=== PATIENT | female | born 1935 | race Caucasian/White ===

== ENCOUNTER 2016-07-30 16:03 | Inpatient (IN) | payer OTHER ==
[~2016-07-30] VITALS: Ht 167.6 cm; Wt 72.3 kg
--- NOTE | ~2016-07-30 | HC ---
[facility] [place] [address] CONSULTATION Name: BRIGHT CARTER Room #: 236-P [facility] IN M.R.#: [id number] Admission: 07/30/16 Attend Phys: Kierra Kahn MD Discharge: 08/01/16 Date of : 34 Report #: [id number] THIS REPORT FOR: //name// CC: Jose Kahn REASON FOR CONSULTATION: Acute kidney injury and metabolic acidosis. REASON FOR PRESENTATION: Fever and shakes. HISTORY OF PRESENT ILLNESS: The history was obtained from the chart and from the previous medical records as the patient is currently intubated and not able to provide us with history. She is an 80-year-old who has a history of lung cancer, recently treated by radiotherapy. Unfortunately, she has new lesions that were diagnosed and those were consistent with recurrence of her [place] disease. She had felt ill and weak for a couple of days before her presentation. She has visited with [facility] and was found to have a fever of 105 and was sent to our facility for further evaluation. Her white blood cell count along with other blood parameters on presentation showed pancytopenia. 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 She is not known to have any previous chronic kidney problems and her most recent creatinine was actually in the normal range before this whole thing started with her. While in the ICU, the patient's condition deteriorated and I had to intubate her emergently. I was asked to see her because of her acute kidney injury or metabolic acidosis. PAST MEDICAL HISTORY: 1. Lung cancer. 2. Multiple endocrine neoplasia. 3. Melanoma. 4. Sjogren's syndrome. 5. COPD. 6. Anemia. PAST SURGICAL HISTORY: 1. Parathyroidectomy. 2. Melanoma excision. 3. Lithotripsy. 4. Hip replacement. 5. Thyroid removal. SOCIAL HISTORY: No drug or alcohol abuse, exsmoker. ALLERGIES: PENICILLIN, SULFA, KEFLEX, ASPIRIN. [facility] [address] [place] [address] CONSULTATION Name: BRIGHT CARTER Room #: 236-P [facility] IN [facility].#: [id number] Admission: 07/30/16 Attend Phys: Kierra Kahn MD Discharge: 08/01/16 Date of : 34 Report #: [id number] FAMILY HISTORY: She had a stroke. ADDITIONAL HISTORY: Pericardial stripping due to the involvement of the pericardial with the above-mentioned carcinoma. REVIEW OF SYSTEMS: Unfortunately, the patient is currently intubated and not able to provide us with review of systems. MEDICATIONS: 1. Digoxin. 2. Atorvastatin. 3. Aldactone. 4. Diazepam. 5. Lasix. 6. Levothyroxine. PHYSICAL EXAMINATION: GENERAL: She is currently intubated on multiple pressors. VITAL SIGNS: Blood pressure is 89/56. HEAD AND NECK: ET-tube with mottled skin. CHEST: Decreased air entry bilaterally. CARDIOVASCULAR: Tachycardic with no rub detected. ABDOMEN: Soft, unable to evaluate for tenderness as the patient is currently intubated. LOWER EXTREMITIES: Mottled skin. LABORATORY VALUES: Most recent chemistry from earlier this morning showed a potassium of 5.3 and an anion gap of 21 and a creatinine of 2.3. Her blood gas showed a pH of 7.09, pCO2 of 23, bicarbonate of 7.1. Cultures are all pending. IMAGING: Including a chest x-ray were reviewed. ASSESSMENT, IMPRESSION AND PLAN: 1. Respiratory failure. 2. Lactic acidosis. 3. Acute kidney injury. 4. Overwhelming sepsis. 5. Hypothyroidism. 6. Remote history of lung cancer with pericardial extension post-pericardial stripping. 7. Multiple endocrine neoplasia. 8. Status post parathyroidectomy. 9. Status post thyroidectomy. 10. The patient's acute kidney injury is explained by an overwhelming sepsis. Agree with the current ICU care including IV fluids, pressors, antibiotics. [address] [address] CONSULTATION Name: BRIGHT CARTER Room #: 236-P [facility] IN M.R.#: [id number] Admission: 07/30/16 Attend Phys: Kierra Kahn MD Discharge: 08/01/16 Date of : 34 Report #: [id number] Given her remote history of nephrolithiasis on stones, we will obtain an ultrasound of the kidneys. 11. Cultures are pending. 12. Discussed with the family at length, she is actually a DNR and there is a living will that will be brought by her daughter. Her daughter used to be a dialysis nurse. I discussed the metabolic acidosis status with her and as for now, she wants to hold on dialysis and she is agreeable to proceeding with bicarbonate drip. 13. Investigate the source of overwhelming sepsis, might need imaging of her chest to rule out pulmonary embolism, might need imaging of her abdomen to rule out ischemic colitis. She is known to have hypercoagulable conditions with remote history of pulmonary embolism and I will defer the management of that to the primary team. 14. I would discontinue any medications that might compromise her renal or electrolyte issues including the Lasix and the Aldactone. 15. This is a very critical situation and this was addressed with the family and they are willing to wait for 24 hours before making any further decisions and think the hemodialysis will help her and we should address her [facility] care plans with the family given her comorbid conditions. 16. ICU time spent in evaluating this patient was the full 60 minutes including coordinating her with other physicians, specifically Dr. Fuller and Dr. Boss, including family spent with time discussing the patient's condition, phone calls and discussing the care plans with the ICU nurse. Time started evaluating the patient was 09:24 a.m. and time finishing evaluating the patient was 10:24 a.m. <ELECTRONICALLY SIGNED> By: Kate Olmstead MD 08/03/16 [id number] Kate Olmstead MD /nt
--- NOTE | ~2016-07-30 | EKG ---
[place] [address] [facility] [place] [address] ELECTROCARDIOGRAM REPORT Name: BRIGHT CARTER Room #: 236-P ADM IN M.R.#: [id number] Admission: 07/30/16 Attend Phys: Kierra Kahn MD Discharge: Date of : 34 Report #: [id number] THIS REPORT FOR: //name// [facility] Test Date: 2016-08-01 Test Time: 06:59:41 Pat Name: BRIGHT CARTER Department: Room: 236 Gender: F Histology Aide: Issac BOND : 1935 Requested By: Shaye Sharma Order Number: [id number] MD: Ced Ervin Measurements Intervals [place] Rate: 138 P: [place]: QRS: 0 QRSD: 98 T: 34 QT: 271 QTc: 411 Interpretive Statements Atrial fibrillation with rapid V-rate Borderline low voltage, extremity leads ST and T wave abnormalities Poor R wave progression No previous ECG available for comparison Electronically Signed On 08-01-2016 8:12:21 OFFSET LABEL REWINDER by Ced Ervin [email or web address] <ELECTRONICALLY SIGNED> By: Ced Ervin MD, [facility] [id number] [phone] Ced Ervin MD, [facility] /EPI
--- NOTE | ~2016-07-30 | HC ---
[facility] [place] [address] CONSULTATION Name: BRIGHT CARTER Room #: 236-P [facility] IN M.R.#: [id number] Admission: 07/30/16 Attend Phys: Kierra Kahn MD Discharge: 08/01/16 Date of : 34 Report #: [id number] THIS REPORT FOR: //name// CC: Jose Kahn PRIMARY CARE PHYSICIAN: Jose Santos MD. REFERRAL PHYSICIAN: Kierra Kahn MD. REASON FOR REFERRAL: Acute cardiopulmonary arrest. HISTORY OF PRESENT ILLNESS: The patient is an 80-year-old white female who was initially admitted on 07/30/2016 with febrile illness and chills. The patient was admitted with sepsis of unknown source. She was pancytopenic, hypotensive. Early this morning, the patient was found to be hypotensive, hypoxic. A code blue was called. She was intubated. She is currently in the ICU. She is hypotensive requiring vasopressors. A pulmonary critical care consultation was requested. At this time, she is sedated. She is tolerating mechanical ventilation. PAST MEDICAL HISTORY: Remarkable for lung cancer initially diagnosed in 2014. She underwent left upper lobe lobectomy along with radiation therapy and chemo in 02/2016. A PET scan performed recently showed recurrence of lung cancer. There are plans for additional therapy at [facility]. She is followed by Dr. Stoney Arauz. She was in her usual state of health until a few days prior to presentation, the patient began to feel very weak, chills and fever. Temperature was said to be 105 degrees Fahrenheit. She presented to [facility], then was subsequently transferred to [facility]. Chest x-ray on admission shows cardiomegaly, in particular right atrial and probable right ventricular hypertrophy with mild increase in vascular markings. No obvious infiltrates are seen. ET tube is approximately 2 cm above the delphine. PAST MEDICAL HISTORY: As mentioned above, apparent recurrent lung cancer, squamous, initially diagnosed as stage IIIa to IIb. Underwent left upper lobe lobectomy 06/2015. Now with recurrence as mentioned above. She also has a history of multiple endocrine neoplasm, followed by Dr. Stoney De La Garza, history of parathyroidoma, gastrinoma undergoing thyroidectomy. She has a history of pulmonary embolus undergoing IVC filter placement, permanent atrial [facility] [address] [place] [address] CONSULTATION Name: BRIGHT CARTER Room #: 236-P [facility] IN M.R.#: [id number] Admission: 07/30/16 Attend Phys: Kierra Kahn MD Discharge: 08/01/16 Date of : 34 Report #: [id number] fibrillation, history of melanoma involving the left arm, COPD along with a history of questionable Sjogren syndrome. PAST SURGICAL HISTORY: As mentioned above. ALLERGIES: Multiple including PENICILLINS, SULFA, which causes dyspnea; ASPIRIN causes increased bleeding risks; CEPHALOSPORIN causes severe rash. HOME MEDICATIONS: Reviewed including Spiriva, Xopenex, Lipitor, spironolactone, Valium, Ambien, Lasix, cyclosporine, Colace, Nexium, levothyroxine, multivitamins. CURRENT MEDICATIONS: Reviewed. These include aztreonam, Solu-Medrol, vancomycin, fluconazole. FAMILY HISTORY: Notable for thyroid disease, skin neoplasm, rheumatoid arthritis, heart disease. SOCIAL HISTORY: She is , lives in [facility]. She has smoked, but quit smoking more than 30 years ago. There is no history of alcohol use. She used to work in the [employer]. REVIEW OF SYSTEMS: Deferred as the patient is intubated. PHYSICAL EXAMINATION: GENERAL: She is sedated. VITAL SIGNS: Temperature maximum is 101.3 degrees Fahrenheit, currently, it is 98 degrees Fahrenheit; pulse is 140 beats per minute; blood pressure 100/61 mmHg; saturation is 92%. HEENT: Normocephalic, atraumatic. The patient is orally intubated. NECK: Supple, without lymphadenopathy or thyromegaly. CHEST: Breath sounds are clear anteriorly but no rales or wheezes. CARDIOVASCULAR: Normal S1, S2. There are no murmurs or gallop. There is no JVD. There is no carotid bruit. EXTREMITIES: Pulses are decreased 1/4+ bilaterally. GENITOURINARY AND RECTAL: Deferred. EXTREMITIES: Cold to touch, mild cyanosis. No clubbing or edema. LABORATORY: Portable chest x-ray again shows cardiomegaly suggestive of right-sided enlargement including the right atrium and right ventricle. Lung was otherwise clear with mild increase in vascular congestion, ET tube is approximately 2 cm above the delphine. Sodium 136, potassium 5.3, chloride 102, CO2 is 13, BUN is 70, creatinine is 2.3, on admission is 1.3. Liver function test is mildly abnormal. Arterial blood gas post-code revealed pH 7.09, pCO2 23, pO2 489 on FiO2 100%. Albumin 3.0. Influenza A and B screen was negative. Lactic acid was 3.1. WBC is 10,900 with significant bandemia at 33%, hemoglobin [address] [address] CONSULTATION Name: BRIGHT CARTER Room #: 236-P [facility] IN [place]#: [id number] Admission: 07/30/16 Attend Phys: Kierra Kahn MD Discharge: 08/01/16 Date of : 34 Report #: [id number] 12.4. IMPRESSION: 1. Acute hypoxic respiratory failure in this 80-year-old white female. She is now hypotensive with acute renal failure, severe metabolic acidosis, profound bandemia and febrile illness. She has a history of recurrent lung cancer, history of pulmonary embolus, undergoing IVC filter placement. Chest x-ray shows cardiomegaly with right-sided cardiomegaly suggestive for right ventricular hypertrophy. Most likely cause of the patient's pulmonary arrest is likely related to severe sepsis, leading to septic shock. She is felt to have underlying chronic obstructive pulmonary disease which is likely contributing. Pulmonary embolus is felt to be less likely given the patient has an IVC filter. 2. History of tobacco use, chronic obstructive pulmonary disease, we will treat for presumed exacerbation. 3. Severe sepsis, septic shock, source unclear. Need to consider infectious processes in this patient who is immunocompromised. Infectious Disease has been consulted. Atypical infections and opportunistic infection should also be considered. Chest x-ray does not show obvious infiltrates. Other considerations include occult bacteremia, GI tract, urinary tract. 4. Acute hypoxic respiratory failure with profound metabolic acidosis with respiratory compensation. This is consistent with severe sepsis. 5. History of pulmonary embolus, status post IVC filter placement. Note that the chest x-ray suggests right ventricular hypertrophy. Echocardiogram has been ordered. Suspect the patient likely has severe pulmonary hypertension. Anticoagulation will be helpful, but may be relatively contraindicated in this patient's recurrence of lung cancer. 6. Acute kidney injury due to hypotension leading to acute tubular necrosis, profound metabolic acidosis with an anion gap. 7. History of lung cancer, diagnosed in 2015, now with recurrence. The patient is status post radiation and chemo along with left upper lobe lobectomy. She is scheduled to go further treatment at [facility]. She is followed by Dr. Arauz. 8. Permanent atrial fibrillation. 9. Multiple endocrine neoplasm syndrome type 1 with history of melanoma, parathyroidoma, gastrinoma. 10. Sjogren syndrome. 11. Hypertension, hyperparathyroidism, glaucoma, gastroesophageal reflux disease. RECOMMENDATION: We will continue mechanical ventilation, make adjustment to the mechanical ventilator, bicarbonate has been given, follow up arterial blood gas. We will wean once medically stable. The patient should be covered for presumed severe sepsis and we will defer [facility] [address] [place] [address] CONSULTATION Name: BRIGHT CARTER Room #: 236-P [facility] IN M.R.#: [id number] Admission: 07/30/16 Attend Phys: Kierra Kahn MD Discharge: 08/01/16 Date of : 34 Report #: [id number] antibiotics to Infectious Disease. Anticoagulation will be very beneficial in this patient; however, it appears that risk for bleeding is mild to moderate. We will reassess and discuss with other consultants. The patient does have risk factors for developing recurrent venous thromboembolic disease. Bronchodilators and corticosteroids will be continued. Wean O2 for saturation 90%. Thank you for this consultation. <ELECTRONICALLY SIGNED> By: Ashok Ward MD 08/02/16 1611 1055 1231 Ashok Ward MD /nt
--- NOTE | ~2016-07-30 | EKG ---
[address] [address] ELECTROCARDIOGRAM REPORT Name: BRIGHT CARTER Room #: 236-P ADM IN M.R.#: [id number] Admission: 07/30/16 Attend Phys: Kierra Kahn MD Discharge: Date of : 34 Report #: [id number] THIS REPORT FOR: //name// [facility] Test Date: 2016-08-01 Test Time: 07:43:02 Pat Name: BRIGHT CARTER Department: Room: 236 P Gender: F Telegraphic Typewriter Repairer: Issac BOND : 1935 Requested By: Kierra Kahn Order Number: [id number] MD: Ced Ervin Measurements Intervals [place] Rate: 132 P: [place]: QRS: 90 QRSD: 106 T: 117 QT: 287 QTc: 425 Interpretive Statements Atrial fibrillation Low voltage, extremity leads Nonspecific ST and T wave abnormality No previous ECG available for comparison Electronically Signed On 08-01-2016 8:12:47 FIRER ELECTRIC LOCOMOTIVE by Ced Ervin [email or web address] <ELECTRONICALLY SIGNED> By: Ced Ervin MD, [facility] 08/01/16 0812 2 Ced Ervin MD, [facility] /EPI
--- NOTE | ~2016-07-30 | H ---
[facility] [place] [address] HISTORY AND PHYSICAL Name: BRIGHT CARTER Room #: 236-P [facility] IN M.R.#: [id number] Admission: 07/30/16 Attend Phys: Kierra Kahn MD Discharge: 08/01/16 Date of : 34 Report #: [id number] THIS REPORT FOR: //name// CC: Jose Kahn DICTATED BY: Shania OH ATTENDING PHYSICIAN: Jacquie Sloan MD PRIMARY CARE PHYSICIAN: Jose Santos MD CHIEF COMPLAINT: Fevers and shakes. HISTORY OF PRESENT ILLNESS: The patient is an 80-year-old female who has a history of lung cancer within the last year. This was initially treated with left upper lobe lobectomy and thoracotomy, which was followed by radiation. She finished radiation treatments in February of 2016, and recently had a PET scan done, which showed a small spot that was biopsied recurrence of her lung cancer and she is planning to have some sort of ablation therapy done on this lesion this week. She has not been on any chemo this entire time. She follows with Dr. Arauz at [facility]. She reports that for the last 2 days, she has been feeling very weak all over and today felt hot and shaky. She did not check her temp at home, but when she arrived at [facility], she had a fever up to 105. She denies any pain anywhere. She denies any cough, or congestion. She denies any nausea, vomiting or diarrhea. She has a slight headache when she has the high fever, but otherwise has no neck pain. She has no urinary complaints. She was noted to have some abnormal labs at [facility] including pancytopenia. She was treated with vancomycin and aztreonam, as well as IV fluids and antiemetics at [facility]. PAST MEDICAL HISTORY: Hypertension, hyperparathyroidism, glaucoma, GERD, lung cancer, previous acute kidney injury, PE, atrial fibrillation, COPD, hypothyroidism, nephrolithiasis, COPD, multiple endocrine neoplasia syndrome, type 1, melanoma, Sjogren's syndrome, hyperlipidemia, and multiple GI bleeds. PAST SURGICAL HISTORY: Total thyroidectomy, parathyroidectomy, left upper lobe lobectomy, lithotripsy, IVC filter, left total hip replacement, , hysterectomy, melanoma excisions. ALLERGIES: PENICILLIN AND SULFA, BOTH CAUSE TROUBLE BREATHING AND ASPIRIN INCREASED HER BLEEDING RISK DUE TO HER HISTORY OF MULTIPLE ENDOCRINE NEOPLASIA. KEFLEX CAUSES A SEVERE RASH. HOME MEDICATIONS: Tiotropium 2 puffs daily, Xopenex 1.25 mg q. 4 hours p.r.n., digoxin 125 mcg daily, Lipitor 10 mg at bedtime, spironolactone 25 mg b.i.d., diazepam 5 mg as directed, Ambien 0.5 mg at bedtime, Lasix 10 mg p.o. at [address] [address] HISTORY AND PHYSICAL Name: BRIGHT CARTER Room #: 236-P [facility] IN M.R.#: [id number] Admission: 07/30/16 Attend Phys: Kierra Kahn MD Discharge: 08/01/16 Date of : 34 Report #: [id number] bedtime, guaifenesin with codeine 10 mL as directed, cyclosporine eyedrops to each eye b.i.d., lactobacillus 1 tablet daily, Colace 100 mg daily, Nexium 40 mg daily, levothyroxine 112 mcg daily, multivitamin daily. SOCIAL HISTORY: The patient is an ex-smoker, having quit 30 years ago. She does drink occasional alcohol, denies any daily use. FAMILY HISTORY: Seems Positive for thyroid disease, skin cancer, rheumatoid arthritis, and heart disease. REVIEW OF SYSTEMS: The patient has had a previous echocardiogram done in June 2015, which showed a normal EF of 55-60%. She was previously admitted here at [facility] last year and has since been at . All other 12-point review of systems was reviewed with the patient, otherwise negative unless stated in the HPI. PHYSICAL EXAMINATION: GENERAL: The patient is an alert female, in no acute distress. VITAL SIGNS: Temperature max is 38.5, heart rate 93, respirations 20, blood pressure is 93/60, oxygen is 97% on room air. HEENT: PERRLA. Sclerae are nonicteric. Oral mucosa is pink and dry. Lips are cracked. NECK: Supple. No JVD noted. CARDIAC: Heart tones are irregular. No murmurs, rubs or gallops. RESPIRATORY: Breath sounds are clear bilaterally. No wheezing or rhonchi. Breathing is nonlabored. ABDOMEN: Soft, nontender, nondistended with positive bowel sounds. VASCULAR: No edema noted. Pedal pulses are 2+. NEUROLOGIC: The patient is alert. She is oriented x 3. Speech is clear. She does have some slight generalized weakness, although she is able to move all extremities equally. LABS AND DIAGNOSTIC DATA: WBC is 2.6, hemoglobin 11.7, platelets 47. Sodium 129, potassium 4.9, BUN 37, creatinine is 1.4, bilirubin is 2.3, AST 48. BNP is 19,700. Influenza A and B are negative. Lactate initially was 1.8, it is now 2.1. UA is negative leukocyte esterase, 3-4 WBCs, 1+ bacteria. Chest x-ray shows cardiomegaly with mild left hemidiaphragm elevation, no consolidation. ASSESSMENT AND PLAN: 1. Systemic inflammatory response syndrome. At this point, source of infection has not been found. We will continue with broad-spectrum antibiotics consisting of vancomycin and aztreonam. As she does have multiple antibiotic allergies, we will be following blood culture results. Tylenol for supportive care. 2. Pancytopenia. Etiology is not clear. She did have recent cancer diagnosed and radiation, but she has not received any chemotherapy. We will follow labs and trends. There is no sign of bleeding. [facility] [address] [place] [address] HISTORY AND PHYSICAL Name: BRIGHT CARTER Room #: 236-P [facility] IN M.R.#: [id number] Admission: 07/30/16 Attend Phys: Kierra Kahn MD Discharge: 08/01/16 Date of : 34 Report #: [id number] 3. Hypotension. We will hold digoxin, spironolactone and Lasix from home. There was mention in previous records of adrenal deficiency, but from what I can see she is not on any chronic steroids. We will try a dose of stress-dosed steroids and see if it helps her blood pressure. 4. Elevated BNP and possible congestive heart failure. We will order an echo in the morning. The patient is not sure when this was last done. We will hold off on any further aggressive fluids. 5. Atrial fibrillation. This is chronic. She is currently rate controlled. Continue home medications. 6. Deep venous thrombosis prophylaxis. Place sequential compression devices. We will continue to follow the patient closely throughout the hospitalization and make changes based on clinical status. <ELECTRONICALLY SIGNED> By: Jacquie Sloan MD 08/23/162009 0610 0751 Jacquie Sloan MD /nt
--- NOTE | ~2016-07-30 | HC ---
[facility] [place] [address] CONSULTATION Name: BRIGHT CARTER Room #: 236-P [facility] IN M.R.#: [id number] Admission: 07/30/16 Attend Phys: Kierra Kahn MD Discharge: 08/01/16 Date of : 33 Report #: [id number] THIS REPORT FOR: //name// CC: Jose Kahn REASON FOR CONSULTATION: I was asked to evaluate concerning possible septic shock. HISTORY OF PRESENT ILLNESS: The patient is an 80-year-old with history of left lung cancer, status post left upper lobectomy and radiation therapy. She has completed her radiation in December. Subsequent PET scan did show evidence of metastatic disease and is supposed to undergo chemotherapy. No current chemotherapy has been undertaken. She was admitted on July 30 with a 2-day history of malaise, fever, generalized weakness. She presented to the emergency room at [facility] in [place], [place]. She had fever up to 105 degrees. Was transferred to [facility] for further treatment. She had no nausea, vomiting or diarrhea and no increased pulmonary symptoms. Initial study showed pancytopenia. She was started on vancomycin and aztreonam for she has several drug allergies to antibiotics. Blood cultures are negative to date. She developed worsening shortness of breath last evening and had a respiratory arrest here in the intensive care unit, now intubated. Minimal tracheal secretions were identified. No gross aspiration. She has been mottled. She is on IV fluids and now vasopressors. There has been no travel. She does have a history of PE and has an IVC filter. She has underlying COPD and hypertension. ALLERGIES: PENICILLIN, SULFA, CEPHALEXIN. MEDICATIONS: As noted on SEP, now on vancomycin and aztreonam. PAST MEDICAL HISTORY: Hypertension, hyperparathyroidism status post parathyroidectomy, total thyroidectomy, glaucoma, gastroesophageal reflux, lung cancer with left upper lobectomy, PE, IVC filter, COPD, left total hip arthroplasty, total knee arthroplasty, , hysterectomy, melanoma excision, atrial fibrillation, nephrolithiasis, previous lithotripsy, multiple endocrine neoplasia syndrome type 1, Sjogren's syndrome, hyperlipidemia, multiple GI bleeds. FAMILY HISTORY: Thyroid disease, skin cancer, rheumatoid arthritis, coronary artery disease. SOCIAL HISTORY: Past smoker, occasional alcohol. No HIV risks. REVIEW OF SYSTEMS: Noted above. The patient was unable to give any details. PHYSICAL EXAMINATION: [facility] [address] [place] [address] CONSULTATION Name: BRIGHT CARTER Room #: 236-P [facility] IN .R.#: [id number] Admission: 07/30/16 Attend Phys: Kierra Kahn MD Discharge: 08/01/16 Date of : 33 Report #: [id number] VITAL SIGNS: Temperature is 97.8, pulse 90, blood pressure 89/50. GENERAL: The patient was mottled throughout, orally intubated, responds to painful stimulus. No adenopathy. LUNGS: Decreased breath sounds left compared to the right. Trachea was midline. HEART: Irregular without appreciable murmur, gallop or rub. ABDOMEN: Soft, nontender, no hepatosplenomegaly or mass. GENITOURINARY: External genitalia unremarkable with indwelling Patrick catheter. EXTREMITIES: Unremarkable. LABORATORY STUDIES: ABG on 10 liters showed a pO2 of 141, pCO2 of 22, pH 7.25, lactate of 7.1 and currently awaiting a repeat blood gas after intubation. Sodium 136, potassium 5.3, bicarbonate 13, creatinine 2.3, previously 1.4, hemoglobin 12.4, white count was 6.6, platelet count was 48,000 with 33% bands. Her initial CBC yesterday was hemoglobin 11.5, white count was 2.2 and platelet count was 33,000. Vancomycin level was 7. Urinalysis was unremarkable. Influenza antigen negative. Blood cultures negative to date. Chest x-ray, left lower lobe atelectasis, small right effusion, questionable small left pneumothorax. Electrocardiogram showed atrial fibrillation. IMPRESSION: An 80-year-old with metastatic lung cancer with a positive PET scan. Extent of disease is not yet known. She has a history of previous PE and has an IVC filter in place. Now with respiratory failure, shock, cause I suspect is sepsis, source is yet to be determined. Other consideration would be pulmonary embolus. Does not appear to have an myocardial infarction on her electrocardiogram but enzymes will be checked. We will repeat her cultures. Check viral respiratory panel. Continue with broad antibiotic coverage. I have discussed with pulmonary medicine and internal medicine as well as nursing staff. She will be on broad antibiotic coverage and continue with sepsis protocol with full resuscitation efforts. <ELECTRONICALLY SIGNED> By: Chucky Boss MD 08/03/16 0936 [id number] Chucky Boss MD /nt
[~2016-07-30 16:03] MED LIST: ALDACTONE25 MG PO; AMBIEN 5 MG TABL5 M1 PO; ANBESOL TOP; CARDIZEM CD240 MG PO; CENTRUM SILVER1 EAC4 PO; COLACE100 MG PO; DIAZEPAM 5 MG5 M1 PO; DIGITEK125 MC1 PO; DUONEB 2.5-0.5 M3 ML INH; FOSAMAX 70 MG T70 MG PO; HYDROXYCHLOROQ200 M1 PO; KLOR-CON 1010 MEQ PO; LASIX 20 MG TAB20 MG PO; LASIX 40 MG TAB40 M2 PO; LEVALBUTER1.25 MG/0. INH; LEVOTHYROXIN0.112 M1 PO; LIPITOR10 MG PO; MAGIC MOUTHWASH PO; MILK OF MA2400 MG/10 PO; MIRALAX17 GM PO; MUCINEX TA600 MG/TA2 PO; NEXIUM40 MG PO; PROBIOTIC1 EAC1 PO; REFRESH CLASSI1 EACH OP; RESTASIS1 EACH OPHTHALMIC; ROBITUSSIN100 MG/53 PO; SPIRONOLACTONE25 M1 PO; STIOLTO RESPIMAT4 GM IH; STIOLTO RESPIMAT4 GM INH; SYNTHROID112 MCG PO; TYLENOL325 MG PO; VITAMIN B-12500 MCG PO; VITAMIN D1000 UNI1 PO; VITAMIN D31000 UNI2 PO; XANAX 0.25 MG0.25 MG PO; ZOFRAN2 MG/1 ML IV
[2016-07-30 18:37] VITALS: BP 93/60
[2016-07-30 19:42] VITALS: BP 97/59
[2016-07-30 22:02] LABS: HEMOGLOBIN 11.5 gm/dL (12.0-15.0); MCV 75.7 fL (80.0-100.0)
[2016-07-30 22:04] LABS: HEMATOCRIT 35.7 % (37.0-47.0); MCH 24.5 pg (26.0-34.0); MCHC 32.4 % (28.0-37.0); RBC 4.71 mil/uL (4.20-5.00); RDW 18.5 % (10.5-14.5)
[2016-07-30 22:16] LABS: CALCIUM 9.3 mg/dL (8.5-10.1); CREATININE 1.4 mg/dL (0.6-1.3); POTASSIUM 4.6 mmol/L (3.5-5.1); TOTAL BILIRUBIN 2.1 mg/dL (<0.1-1.0)
[2016-07-30 22:29] LABS: MANUAL DIFF YES; WBC 2.2 thou/uL (4.0-11.0)
[2016-07-30 22:44] LABS: METAMYELOCYTES 1 %; PLATELET ESTIMATE DECREASED; TOTAL CELL COUNT 100
[2016-07-30 22:45] LABS: LARGE PLATELETS OCCASIONAL; PLATELET COUNT 33 thou/uL (150-400)
[2016-07-30 22:48] LABS: ANISOCYTOSIS 2+
[2016-07-30 22:49] LABS: OVALOCYTES 2+; POIKILOCYTOSIS 2+
[2016-07-30 22:50] LABS: BURR CELLS 2+; SCHISTOCYTES FEW
[2016-07-31 00:02] VITALS: BP 116/72; BP 82/50
[2016-07-31 06:48] VITALS: BP 76/61
[2016-07-31 07:52] VITALS: BP 78/51
[2016-07-31 11:18] VITALS: BP 88/55
[2016-07-31 13:23] LABS: URINE BILIRUBIN 1+ (Negative); URINE BLOOD NEGATIVE (Negative); URINE COLOR YELLOW; URINE GLUCOSE-RANDOM* TRACE (Negative); URINE KETONES NEGATIVE (Negative); URINE LEUKOCYTES-REFLEX NEGATIVE (Negative); URINE PROTEIN (DIPSTICK) 1+ (Negative); URINE SPECIFIC GRAVITY >= 1.030 (1.003-1.035)
[2016-07-31 13:28] LABS: ICTOTEST (BILI CONFIRMATORY) Positive (Negative)
[2016-07-31 13:29] LABS: CASTS None Seen /LPF (None Seen); SQUAMOUS None Seen /LPF (0-3); URINE RBC 0-2 Rare /HPF (0-2); URINE WBC-REFLEX None Seen /HPF (0-5)
[2016-07-31 13:30] LABS: AMORPHOUS URATES Few /LPF (None Seen)
[2016-07-31 15:41] VITALS: BP 101/59
[2016-07-31 19:55] VITALS: BP 99/56
[2016-08-01] VITALS (32 sets, daily range): BP systolic 70–110; BP diastolic 12–73
[2016-08-01 03:22] LABS: HEMATOCRIT 39.9 % (37.0-47.0); HEMOGLOBIN 12.4 gm/dL (12.0-15.0); MCH 24.6 pg (26.0-34.0); MCHC 30.9 % (28.0-37.0); MCV 79.6 fL (80.0-100.0); RBC 5.02 mil/uL (4.20-5.00); RDW 19.2 % (10.5-14.5); WBC 6.6 thou/uL (4.0-11.0)
[2016-08-01 03:25] LABS: MANUAL DIFF YES
[2016-08-01 03:44] LABS: CALCIUM 9.8 mg/dL (8.5-10.1); CREATININE 2.3 mg/dL (0.6-1.3); POTASSIUM 5.3 mmol/L (3.5-5.1)
[2016-08-01 05:07] LABS: ANISOCYTOSIS 3+; LARGE PLATELETS OCCASIONAL; METAMYELOCYTES 3 %; PLATELET COUNT 48 thou/uL (150-400); POIKILOCYTOSIS 2+; TOTAL CELL COUNT 100
[2016-08-01 05:09] LABS: MACROCYTES 1+; MICROCYTES 2+
[2016-08-01 06:54] LABS: ABG SAMPLE TYPE ARTERIAL; BE(vivo) -15.5 mmol/L (-2 to +3); HCO3 9.6 mmol/L (22.0-26.0); O2(CT) 18.4 mL/dL (15.0-23.0); O2Hb 97.1 % (92.0-98.0); PO2 141.5 mmHg (80.0-100.0); sO2 98.5 % (92.0-98.0); tCO2 10.3 mmol/L (24.0-30.0)
[2016-08-01 06:55] LABS: LACTATE 7.17 mmol/L (0.5-2.0); PCO2 22.2 mmHg (35.0-45.0); STICK SITE R.RADIAL; pH 7.255 (7.360-7.450)
[2016-08-01 09:34] LABS: ABG SAMPLE TYPE ARTERIAL; BE(vivo) -21.1 mmol/L (-2 to +3); HCO3 7.1 mmol/L (22.0-26.0); O2(CT) 19.1 mL/dL (15.0-23.0); O2Hb 98.7 % (92.0-98.0); PO2 489.9 mmHg (80.0-100.0); sO2 99.8 % (92.0-98.0); tCO2 7.8 mmol/L (24.0-30.0)
[2016-08-01 09:35] LABS: PCO2 23.8 mmHg (35.0-45.0); STICK SITE L.FEMORAL; TIDAL VOLUME 500 ml; pH 7.091 (7.360-7.450)
[2016-08-01 10:22] LABS: RBC 4.69 mil/uL (4.20-5.00)
[2016-08-01 10:24] LABS: HEMATOCRIT 36.9 % (37.0-47.0); HEMOGLOBIN 11.6 gm/dL (12.0-15.0); MANUAL DIFF YES; MCH 24.7 pg (26.0-34.0); MCHC 31.4 % (28.0-37.0); MCV 78.7 fL (80.0-100.0); PLATELET COUNT 49 thou/uL (150-400); WBC 10.9 thou/uL (4.0-11.0)
[2016-08-01 10:38] LABS: APTT 55.1 Seconds (24.5-32.8); INR 2.6; PROTIME 26.6 Seconds (9.3-11.4)
[2016-08-01 10:44] LABS: ALBUMIN 2.3 g/dL (3.4-5.0); CREATININE 2.8 mg/dL (0.6-1.3); PHOSPHORUS 5.4 mg/dL (2.5-4.9); POTASSIUM 5.5 mmol/L (3.5-5.1); TOTAL BILIRUBIN 3.2 mg/dL (<0.1-1.0); TOTAL PROTEIN 4.6 g/dL (6.4-8.2)
[2016-08-01 11:06] LABS: ABSOLUTE NEUTROPHILS 9.8 thou/uL (1.4-8.2); ATYPICAL LYMPHS 3 %; METAMYELOCYTES 2 %; TOTAL CELL COUNT 100
[2016-08-01 11:07] LABS: ANISOCYTOSIS 2+; BURR CELLS 3+; OVALOCYTES 2+
[2016-08-01 12:06] LABS: ABG SAMPLE TYPE VENOUS; BE(vivo) -20.2 mmol/L (-2 to +3); HCO3 8.7 mmol/L (22.0-26.0); LACTATE 7.09 mmol/L (0.5-2.0); O2(CT) 8.6 mL/dL (15.0-23.0); O2Hb VENOUS 55.7 (65.0-85.0); PCO2 VENOUS 31.3 mmHg (41.0-51.0); PO2 VENOUS 40.2 mmHg (35.0-45.0); tCO2 9.7 mmol/L (24.0-30.0)
[2016-08-01 12:07] LABS: STICK SITE LINE
[2016-08-01 12:16] LABS: URINE BILIRUBIN 1+ (Negative); URINE BLOOD NEGATIVE (Negative); URINE GLUCOSE-RANDOM* NEGATIVE (Negative); URINE KETONES TRACE (Negative); URINE NITRITE NEGATIVE (Negative); URINE PROTEIN (DIPSTICK) 1+ (Negative); URINE SPECIFIC GRAVITY >= 1.030 (1.003-1.035)
[2016-08-01 12:18] LABS: URINE COLOR DK YELLOW
[2016-08-01 12:19] LABS: ICTOTEST (BILI CONFIRMATORY) Positive (Negative)
[2016-08-01 12:30] LABS: SQUAMOUS 0-3 Few /LPF (0-3)
[2016-08-01 12:33] LABS: HYALINE CASTS 4-10 Moderate /LPF (None Seen)
[2016-08-01 12:34] LABS: AMORPHOUS URATES Moderate /LPF (None Seen); BACTERIA 1-9 Few /HPF (None Seen); URINE RBC None Seen /HPF (0-2); URINE WBC 0-5 Rare /HPF (0-5)
[2016-08-01 19:08] LABS: URINE PROTEIN-RANDOM* 69.5 mg/dL (Not Estab.)
== END 2016-08-01 16:05 | DRG 871 ==
LOC: 4W 16:03 → 4S 18:32 → ICU 08-01 07:34
PROVIDERS: Family Medicine; Hospitalist; Internal Medicine Endocrinology, Diabetes & Metabolism; Nurse Practitioner Acute Care
PROC: 5A1935Z Respiratory Ventilation, Less than 24 Consecutive Hours (ICD-10-PCS; principal; 2016-08-01)
PROC: 02HV33Z Insertion of Infusion Device into Superior Vena Cava, Percutaneous Approach (ICD-10-PCS; 2016-08-01)
PROC: B548ZZA Ultrasonography of Superior Vena Cava, Guidance (ICD-10-PCS; 2016-08-01)
DX: A41.9 Sepsis, unspecified organism (principal); R65.21 Severe sepsis with septic shock; J96.01 Acute respiratory failure with hypoxia; N17.0 Acute kidney failure with tubular necrosis; D61.818 Other pancytopenia; E87.2 Acidosis; C34.90 Malignant neoplasm of unspecified part of unspecified bronchus or lung; Z96.651 Presence of right artificial knee joint; Z96.642 Presence of left artificial hip joint; Z96.1 Presence of intraocular lens; M35.00 Sjogren syndrome, unspecified; I48.2 Chronic atrial fibrillation; I50.9 Heart failure, unspecified; Z88.0 Allergy status to penicillin; Z88.2 Allergy status to sulfonamides; I10 Essential (primary) hypertension; J44.9 Chronic obstructive pulmonary disease, unspecified; E31.20 Multiple endocrine neoplasia [MEN] syndrome, unspecified; E78.5 Hyperlipidemia, unspecified; E03.9 Hypothyroidism, unspecified; K21.9 Gastro-esophageal reflux disease without esophagitis; Z66 Do not resuscitate; H40.9 Unspecified glaucoma; G47.00 Insomnia, unspecified; K08.409 Partial loss of teeth, unspecified cause, unspecified class; Z98.890 Other specified postprocedural states; Z85.828 Personal history of other malignant neoplasm of skin; Z87.891 Personal history of nicotine dependence; Z85.118 Personal history of other malignant neoplasm of bronchus and lung; Z88.6 Allergy status to analgesic agent; Z87.442 Personal history of urinary calculi; Z88.8 Allergy status to other drugs, medicaments and biological substances; Z90.2 Acquired absence of lung [part of]; Z86.711 Personal history of pulmonary embolism; Z90.710 Acquired absence of both cervix and uterus; Z82.61 Family history of arthritis; Z80.8 Family history of malignant neoplasm of other organs or systems; Z83.49 Family history of other endocrine, nutritional and metabolic diseases; Z82.49 Family history of ischemic heart disease and other diseases of the circulatory system; Z82.3 Family history of stroke; Z51.5 Encounter for palliative care
CPT/HCPCS: 10100; 27000; 85026